=== PATIENT | female | born 1950 | race Caucasian/White ===

== ENCOUNTER 2022-05-11 13:48 | Outpatient (CLI) | payer MEDICARE | END 2022-05-11 13:49 | disposition home or self-care (01) | LOC: CSHMAMMO 13:48 | PROVIDERS: ATTEND Family Medicine | DX: N63.32 Unspecified lump in axillary tail of the left breast (principal) | CPT/HCPCS: 76642; 77066; G0279 ==

== ENCOUNTER → 2022-05-14 | Day surgery (SDC) | payer MEDICARE, OTHER | LOC: CSHULT 12:38 | PROVIDERS: ATTEND Family Medicine | DX: C50.212 Malignant neoplasm of upper-inner quadrant of left female breast (principal) | CPT/HCPCS: 19083; 19084; 88305; 88361 ==